=== PATIENT | female | born 1990 | race Caucasian/White ===

== ENCOUNTER 2023-05-25 12:26 | Inpatient (IN) | payer MEDICAID, SELFPAY ==
[2023-05-25] MEDS ORDERED: hydrALAZINE 20 MG/ML VIAL ONE (13:03)
[2023-05-25] MEDS ORDERED: hydrALAZINE 20 MG/ML VIAL SLOW IVP PRN ×3 (13:18)
[2023-05-25] MEDS ORDERED: Docusate 100 MG CAP PO PRN (13:18)
[2023-05-25] MEDS ORDERED: Diphenoxylate HCl/Atropine Tablet PO PRN (13:18)
[2023-05-25] MEDS ORDERED: Lorazepam 2 MG/ML VIAL SLOW IVP PRN (13:18)
[2023-05-25] MEDS ORDERED: Zolpidem Tartrate 5 MG TAB PO PRN (13:18)
[2023-05-25] MEDS ORDERED: Carboprost 250 MCG/ML AMP IM PRN (13:18)
[2023-05-25] MEDS ORDERED: Promethazine HCl 25 MG/ML VIAL IM PRN (13:18)
[2023-05-25] MEDS ORDERED: Acetaminophen 500 MG TAB PO PRN (13:18)
[2023-05-25] MEDS ORDERED: Misoprostol 200 MCG TAB PR PRN (13:18)
[2023-05-25] MEDS ORDERED: Ondansetron PF 4 MG/2 ML Vial IVP PRN (13:18)
[2023-05-25] MEDS ORDERED: Tranexamic Acid 1,000 MG/10 ML VIAL IVP PRN (13:18)
[2023-05-25] MEDS ORDERED: Labetalol HCl 100 MG/20 ML VIAL SLOW IVP PRN ×2 (13:18)
[2023-05-25] MEDS ORDERED: Calcium Gluc 4.6 MEQ/10 ML (100 MG/ML) SLOW IVP PRN (13:18)
[2023-05-25 13:26] VITALS: BMI 33.5
[2023-05-25] MEDS ORDERED: Oxytocin 30 units/NS 500 ML 500 ML IV SCH (13:30)
[2023-05-25] MEDS: Magnesium Sulfate 20 gm/500 ml 20 GM/500 ML BAG IVPB SCH ×2 (14:14→22:44)
[2023-05-25 14:39] LABS: Hematocrit 35.3 % (34.9-44.5); Hemoglobin 12.3 g/dL (12.0-15.5); Mean Corpuscular HGB CONC 34.8 g/dL (32.0-36.0); Mean Corpuscular Hemoglobin 34.4 pg (27.0-33.0); Mean Corpuscular Volume 98.6 fl (81.6-98.3); Mean Platelet Volume 12.7 fl (7.4-10.4); Platelet Count 177 10x3/uL (150-450); RBC Distribution Width 13.2 % (11.5-14.5); Red Blood Cell (RBC) Count 3.58 10x6/uL (3.90-5.03); White Blood Cell (WBC) Count 8.5 10x3/uL (3.5-10.5)
[2023-05-25 15:40] LABS: Bilirubin Neg (Negative); Blood, Urine 25 (Negative); Clarity Clear (Clear); Glucose, Urine (Dipstick) Normal (Negative); Ketone, Urine Negative (Negative); Leukocyte Negative (Negative); Nitrite Negative (Negative); Protein, Urine (Dipstick) 500 mg/dl (Neg-Trace); Urobilinogen Normal mg/dL (Less than 2)
[2023-05-25 15:46] LABS: Amphetamine Not Detected (NotDetected); Barbiturates Screen Not Detected (NotDetected); Benzodiazepine Screen Not Detected (NotDetected); Cocaine Metabolite Screen Not Detected (NotDetected); Methadone Not Detected (NotDetected); Methamphetamine Not Detected (NotDetected); Opiate Screen Not Detected (NotDetected); Oxycodone Screen Not Detected (NotDetected); Phencyclidine (PCP) Not Detected (NotDetected); THC/Cannabinoid Screen Not Detected (NotDetected); Tricyclic Screen Not Detected (NotDetected)
[2023-05-25 15:56] LABS: Bacteria/HPF Rare-Few HPF (None Seen); RBC/HPF 0-3 HPF (0-3); Squamous Epithelial 0-3 HPF (0-3)
[2023-05-25] MEDS ORDERED: Betamet Acet/Betamet Na Ph 30 MG/5 ML VIAL IM SCH (16:00)
[2023-05-25] MEDS: Betamet Acet/Betamet Na Ph 30 MG/5 ML VIAL IM SCH (16:07)
[2023-05-25 18:03] LABS: HBSAg Index 0.14 S/CO (0-0.99); HIV (1/2) Antibody/Antigen Non-Reactive (NonReactive); HIV 1/2 INDEX 0.09 S/CO (<1.00); Hep B Surf Ag - L&D Non-Reactive S/CO (NonReactive)
[2023-05-25 18:04] LABS: Syphilis Antibody Nonreactive (Nonreactive); Syphilis Antibody Index 0.04 S/CO (<1.00 Non-Reactive)
[2023-05-25 18:14] LABS: ALT (SGPT) 14 U/L (8-55); AST (SGOT) 28 U/L (5-34); Albumin 2.8 g/dL (3.5-5.0); Alkaline Phosphatase 177 U/L (40-110); Anion Gap 13 mmol/L (10-20); BUN (Urea Nitrogen) 9 mg/dL (7.0-18.7); Bilirubin, Total 0.4 mg/dL (0.2-1.2); Calc. Creatinine Clearance 161 mL/min (70-130); Calcium 8.6 mg/dL (7.8-10.44); Carbon Dioxide 18 mmol/L (22-29); Chloride 107 mmol/L (98-107); Estimated GFR 118; Glucose 61 mg/dL (70-105); Potassium 4.4 mmol/L (3.5-5.1); Protein, Total 5.8 g/dL (6.0-8.3); Sodium 134 mmol/L (136-145)
[2023-05-25 18:33] LABS: Creatinine, Urine 78.9 mg/dL (47-110)
[2023-05-25] MEDS: Lactated Ringer's 1,000 ML IV SCH (19:48)
[2023-05-26] MEDS: Lactated Ringer's 1,000 ML IV SCH ×3 (02:44→18:28)
[2023-05-26] MEDS: Betamet Acet/Betamet Na Ph 30 MG/5 ML VIAL IM SCH (03:36)
[2023-05-26] MEDS ORDERED: Famotidine/PF 20 mg/2ml Vial SLOW IVP PRN (10:07)
[2023-05-26] MEDS ORDERED: Bicitra 30 ML UDCUP PO PRN (10:07)
[2023-05-26] MEDS ORDERED: CEFAZOLIN 2 GM in Sodium Chloride 0.9% 100 ML IVPB SCH (10:15)
[2023-05-26] MEDS: Magnesium Sulfate 20 gm/500 ml 20 GM/500 ML BAG IVPB SCH (10:19)
[2023-05-26] MEDS ORDERED: Morphine PF 10 MG/10 ML VIAL ONE (10:49)
[2023-05-26] MEDS ORDERED: fentaNYL 50 mcg/mL 1 mL Vial ONE ×4 (10:49→14:14)
[2023-05-26] MEDS ORDERED: Erythromycin Base 0.5% Oint 1 GM TUBE ONE (10:53)
[2023-05-26] MEDS ORDERED: Phytonadione Neonatal 1 MG/0.5 ML AMP ONE (10:53)
[2023-05-26 10:54] LABS: #Monocytes 0.6 10x3/uL (0.0-1.1); #Neutrophils 12.4 10x3/uL (1.5-8.4); %Basophils 0.1 % (0.0-2.0); %Lymphocytes 13.1 % (18.0-47.0); %Monocytes 3.7 % (0.0-10.0); %Neutrophils 82.4 % (40.0-75.0); Hematocrit 36.9 % (34.9-44.5); Hemoglobin 12.8 g/dL (12.0-15.5); Magnesium 6.8 mg/dL (1.6-2.6); Mean Corpuscular HGB CONC 34.7 g/dL (32.0-36.0); Mean Corpuscular Hemoglobin 34.5 pg (27.0-33.0); Mean Corpuscular Volume 99.5 fl (81.6-98.3); Mean Platelet Volume 12.4 fl (7.4-10.4); Platelet Count 224 10x3/uL (150-450); RBC Distribution Width 13.4 % (11.5-14.5); Red Blood Cell (RBC) Count 3.71 10x6/uL (3.90-5.03); White Blood Cell (WBC) Count 15.1 10x3/uL (3.5-10.5)
[2023-05-26] MEDS ORDERED: PROPOFOL 20 ML ONE (11:20)
[2023-05-26] MEDS ORDERED: PHENYLEPHRINE-NS 100 MCG/ML 10 ML SYRINGE ONE (11:20)
[2023-05-26 12:24] LABS: RapidComm Collect By OR NURSE
[2023-05-26 12:25] LABS: RapidComm Collect By OR NURSE
[2023-05-26 12:27] LABS: RapidComm Collect By OR NURSE
[2023-05-26 12:28] LABS: RapidComm Collect By OR NURSE; pH (Cord, venous) 7.278 (7.250-7.350)
[2023-05-26] MEDS ORDERED: Labetalol HCl 100 MG/20 ML VIAL SLOW IVP PRN (12:38)
[2023-05-26] MEDS ORDERED: Lorazepam 2 MG/ML VIAL SLOW IVP PRN (12:38)
[2023-05-26] MEDS ORDERED: hydrALAZINE 20 MG/ML VIAL SLOW IVP PRN (12:38)
[2023-05-26] MEDS ORDERED: Calcium Gluc 4.6 MEQ/10 ML (100 MG/ML) SLOW IVP PRN (12:38)
[2023-05-26] MEDS ORDERED: Magnesium Sulfate 20 gm/500 ml 20 GM/500 ML BAG IVPB SCH ×2 (12:45)
[2023-05-26] MEDS ORDERED: Promethazine HCl 25 MG SUPP PR PRN (12:51)
[2023-05-26] MEDS ORDERED: diphenhydrAMINE 50 MG/ML VIAL IVP PRN ×2 (12:51→14:48)
[2023-05-26] MEDS ORDERED: Promethazine HCl 25 MG/ML VIAL IM PRN ×2 (12:51→14:48)
[2023-05-26] MEDS ORDERED: Naloxone HCl 0.4 mg/ml Vial IVP PRN ×2 (12:51)
[2023-05-26] MEDS ORDERED: Ondansetron PF 4 MG/2 ML Vial IVP PRN ×2 (12:51→14:48)
[2023-05-26] MEDS ORDERED: Fentanyl 50 MCG/1 ML VIAL SLOW IVP PRN (12:51)
[2023-05-26] MEDS ORDERED: Naloxone HCl 0.4 mg/ml Vial IV PRN ×2 (12:51→14:48)
[2023-05-26] MEDS ORDERED: Ondansetron HCl/PF 4 MG/2 ML Vial IVP PRN (12:51)
[2023-05-26] MEDS ORDERED: Moisturizing Cream (Eucerin) 113 GM JAR TOP PRN (12:51)
[2023-05-26] MEDS ORDERED: Meperidine HCl/PF 25 MG/ML VIAL SLOW IVP PRN (12:51)
[2023-05-26] MEDS ORDERED: Communication Order-Pharmacy FS SCH ×2 (13:00→15:00)
[2023-05-26] MEDS ORDERED: Lidocaine 1% PF 5 ML VIAL ONE (13:39)
[2023-05-26] MEDS ORDERED: Bupivacaine 0.25% HCL 30 ML VIAL ONE (13:40)
[2023-05-26] MEDS ORDERED: diphenhydrAMINE 50 MG/ML VIAL IM PRN (14:48)
[2023-05-26] MEDS ORDERED: diphenhydrAMINE 25 MG CAP PO PRN (14:48)
[2023-05-26] MEDS ORDERED: FENTANYL 500 MCG/10 ML VIAL 2,000 MCG in Sodium Chloride 0.9% 60 ML IV PRN (14:48)
[2023-05-26] MEDS ORDERED: fentaNYL Citrate/PF PCA SYRING 50 ML IV SCH ×3 (15:30→16:15)
[2023-05-26] MEDS ORDERED: SODIUM CHLORIDE 0.9% IV SCH (15:30)
[2023-05-26] MEDS ORDERED: FENTANYL IV SCH (15:30)
[2023-05-27 06:11] LABS: #Eosinphils 0.1 10x3/uL (0.0-0.5); #Monocytes 1.1 10x3/uL (0.0-1.1); #Neutrophils 13.6 10x3/uL (1.5-8.4); %Basophils 0.2 % (0.0-2.0); %Eosinophils 0.3 % (0.0-6.0); %Lymphocytes 9.7 % (18.0-47.0); %Monocytes 6.4 % (0.0-10.0); %Neutrophils 82.6 % (40.0-75.0); Hematocrit 34.1 % (34.9-44.5); Mean Corpuscular HGB CONC 32.3 g/dL (32.0-36.0); Mean Corpuscular Hemoglobin 34.6 pg (27.0-33.0); Mean Corpuscular Volume 107.2 fl (81.6-98.3); Mean Platelet Volume 11.1 fl (7.4-10.4); Platelet Count 200 10x3/uL (150-450); RBC Distribution Width 13.7 % (11.5-14.5); Red Blood Cell (RBC) Count 3.18 10x6/uL (3.90-5.03); White Blood Cell (WBC) Count 16.4 10x3/uL (3.5-10.5)
[2023-05-27 06:15] LABS: ALT (SGPT) 15 U/L (8-55); AST (SGOT) 44 U/L (5-34); Alkaline Phosphatase 116 U/L (40-110); Anion Gap 11 mmol/L (10-20); BUN (Urea Nitrogen) 9 mg/dL (7.0-18.7); Bilirubin, Total 0.2 mg/dL (0.2-1.2); Calc. Creatinine Clearance 171 mL/min (70-130); Calcium 6.5 mg/dL (7.8-10.44); Carbon Dioxide 17 mmol/L (22-29); Chloride 105 mmol/L (98-107); Estimated GFR 119; Globulin 2.2 g/dL (2.4-3.5); Glucose 101 mg/dL (70-105); Protein, Total 4.2 g/dL (6.0-8.3); Sodium 128 mmol/L (136-145)
[2023-05-27] MEDS ORDERED: Fentanyl 50 MCG/1 ML VIAL SLOW IVP PRN (08:09)
[2023-05-27] MEDS ORDERED: Ondansetron HCl/PF 4 MG/2 ML Vial IVP PRN (08:09)
[2023-05-27] MEDS ORDERED: L&D-Morphine 4 MG/ML VIAL SLOW IVP PRN (08:09)
[2023-05-27] MEDS ORDERED: Meperidine HCl/PF 25 MG/ML VIAL SLOW IVP PRN (08:09)
[2023-05-27] MEDS ORDERED: Ketorolac Tromethamine 30 MG/ML VIAL IVP SCH ×2 (08:15→08:30)
[2023-05-27] MEDS ORDERED: Bisacodyl 10 MG SUPP PR PRN (13:00)
[2023-05-27] MEDS ORDERED: Lanolin Ointment 7 GM TUBE TOP PRN (13:00)
[2023-05-27] MEDS ORDERED: HYDROcodone/Acetaminophen 5/325 mg Tablet PO PRN (13:00)
[2023-05-27] MEDS ORDERED: Ondansetron PF 4 MG/2 ML Vial IVP PRN (13:00)
[2023-05-27] MEDS ORDERED: diphenhydrAMINE 25 MG CAP PO PRN (13:00)
[2023-05-27] MEDS ORDERED: Oxytocin 30 units/NS 500 ML 500 ML IV SCH (13:00)
[2023-05-27] MEDS ORDERED: Simethicone Chewable 80 MG TAB PO PRN (13:00)
[2023-05-27] MEDS ORDERED: Misoprostol 200 MCG TAB PR PRN (13:00)
[2023-05-27] MEDS ORDERED: hydrALAZINE 20 MG/ML VIAL SLOW IVP PRN (13:00)
[2023-05-27] MEDS: Lactated Ringer's 1,000 ML IV SCH (13:07)
[2023-05-27] MEDS ORDERED: Prenatal Vitamin 1 TAB PO SCH (13:15)
[2023-05-27] MEDS ORDERED: Docusate 100 MG CAP PO SCH (13:15)
[2023-05-27] MEDS: HYDROcodone/Acetaminophen 5/325 mg Tablet PO PRN ×2 (13:18→17:56)
[2023-05-27] MEDS: Ibuprofen 800 MG TAB PO SCH ×2 (14:13→21:31)
[2023-05-27 16:18] LABS: HBSAB Concentration Less than 8.00 mIU/mL; Hep B Surf AB Non-Reactive (NonReactive)
[2023-05-27] MEDS: Ferrous Sulfate 325 MG TAB PO SCH ×2 (17:52→21:00)
[2023-05-27] MEDS: Docusate 100 MG CAP PO SCH (21:31)
[2023-05-28 02:21] LABS: Hematocrit 25.7 % (34.9-44.5); Hemoglobin 8.9 g/dL (12.0-15.5); Mean Corpuscular HGB CONC 34.6 g/dL (32.0-36.0); Mean Corpuscular Hemoglobin 34.5 pg (27.0-33.0); Mean Corpuscular Volume 99.6 fl (81.6-98.3); Mean Platelet Volume 10.8 fl (7.4-10.4); Platelet Count 189 10x3/uL (150-450); RBC Distribution Width 13.6 % (11.5-14.5); Red Blood Cell (RBC) Count 2.58 10x6/uL (3.90-5.03)
[2023-05-28] MEDS: Ibuprofen 800 MG TAB PO SCH ×3 (05:31→21:38)
[2023-05-28] MEDS: Ferrous Sulfate 325 MG TAB PO SCH ×2 (08:25→21:38)
[2023-05-28] MEDS: Docusate 100 MG CAP PO SCH ×2 (08:25→21:38)
[2023-05-28] MEDS: Prenatal Vitamin 1 TAB PO SCH (08:27)
[2023-05-28] MEDS: HYDROcodone/Acetaminophen 5/325 mg Tablet PO PRN ×2 (11:44→20:21)
[2023-05-28 12:13] LABS: #Monocytes 1.3 10x3/uL (0.0-1.1); #Neutrophils 9.5 10x3/uL (1.5-8.4); %Basophils 0.1 % (0.0-2.0); %Eosinophils 0.2 % (0.0-6.0); %Lymphocytes 22.3 % (18.0-47.0); %Monocytes 9.4 % (0.0-10.0); %Neutrophils 66.3 % (40.0-75.0); Hematocrit 28.9 % (34.9-44.5); Hemoglobin 9.9 g/dL (12.0-15.5); Mean Corpuscular HGB CONC 34.3 g/dL (32.0-36.0); Mean Corpuscular Hemoglobin 34.7 pg (27.0-33.0); Mean Corpuscular Volume 101.4 fl (81.6-98.3); Mean Platelet Volume 10.7 fl (7.4-10.4); Platelet Count 219 10x3/uL (150-450); RBC Distribution Width 13.7 % (11.5-14.5); Red Blood Cell (RBC) Count 2.85 10x6/uL (3.90-5.03); White Blood Cell (WBC) Count 14.3 10x3/uL (3.5-10.5)
[2023-05-29] MEDS: Ibuprofen 800 MG TAB PO SCH ×2 (05:15→12:53)
[2023-05-29 10:38] VITALS: BP 139/77; TEMP 98.3
[2023-05-29] MEDS: Prenatal Vitamin 1 TAB PO SCH (12:22)
[2023-05-29] MEDS: Ferrous Sulfate 325 MG TAB PO SCH (12:22)
== END 2023-05-29 12:40 | disposition home or self-care (01) | DRG 788 ==
LOC: CSHLD/OP 12:26 → CSHLD 14:06 → CSHPP 05-27 12:46
PROVIDERS: ADMIT Obstetrics & Gynecology; ATTEND Obstetrics & Gynecology
PROC: 10D00Z1 Extraction of Products of Conception, Low, Open Approach (ICD-10-PCS; principal; 2023-05-26)
DX: O32.1XX1 Maternal care for breech presentation, fetus 1 (principal); O32.1XX2 Maternal care for breech presentation, fetus 2; O14.14 Severe pre-eclampsia complicating childbirth; O30.033 Twin pregnancy, monochorionic/diamniotic, third trimester; Z3A.33 33 weeks gestation of pregnancy; Z37.2 Twins, both liveborn; O13.4 Gestational [pregnancy-induced] hypertension without significant proteinuria, complicating childbirth; O43.023 Fetus-to-fetus placental transfusion syndrome, third trimester; O90.81 Anemia of the puerperium; D64.9 Anemia, unspecified
CPT/HCPCS: 36415; 51702; 76810; 76815; 76819; 80053; 80306; 81001; 82570; 82805; 83735; 84156; 85025; 85027; 86706; 86762; 86780; 86850; 86900; 86901; 87340; 87389; 88307; 93970; J0360; J0702; J2274; J2405; J2704; J3010; J3475; J3490; J7120; S0020; S0028